=== PATIENT | female | born 1945 | race Caucasian/White ===

== ENCOUNTER 2016-11-26 12:12 | Inpatient (IN) | payer MEDICARE, OTHER ==
[2016-11-26 12:12] VITALS: BMI 37.0
[2016-11-26] MEDS ORDERED: MethylPREDNISolone 40 mg Vial IVP STA (12:35)
[2016-11-26] MEDS ORDERED: Albuterol-Ipratrop 3 mg / 0.5 (3 ml) UD IH STA (12:35)
--- NOTE | 2016-11-26 12:37 | C.PDOC ---
History Of Present Illness 11/26/2016 Benjamín Milton is a 71 y/o female whose pmh includes HTN and asthma, presents to the ED complaining of shortness of breath and flu-like symptoms. Patient reports having a cough, body aches, and this morning she had a fever of 102 degrees. Patient denies chest pain, headache, back pain, nausea, vomiting, diarrhea, abdominal pain, lower extremity pain/swelling, recent travel, dizziness or other complaints. PMD: Dr. Sousa Time Seen by Provider: 11/26/16 12:27 Chief Complaint (Nursing): Cough, Cold, Congestion History Per: Patient, Family History/Exam Limitations: no limitations Onset/Duration Of Symptoms: Gradual Current Symptoms Are (Timing): Worse Location Of Pain: Other (body aches) Associated Symptoms: Fever, Cough, Other (shotness of breath and body aches) Additional History Per: Family Past Medical History Reviewed: Historical Data, Nursing Documentation, Vital Signs Vital Signs: Last Vital Signs Temp 98.3 F 11/26/16 12:16 Pulse 65 11/26/16 15:15 Resp 19 11/26/16 15:15 BP 117/49 L 11/26/16 15:15 Pulse Ox 93 L 11/26/16 15:44 - Medical History PMH: HTN Denies: Depression Family History: States: No Known Family Hx - Social History Hx Tobacco Use: No Hx Alcohol Use: No Hx Substance Use: No Review Of Systems Constitutional: Positive for: Fever Cardiovascular: Negative for: Chest Pain Respiratory: Positive for: Cough, Shortness of Breath Gastrointestinal: Negative for: Vomiting, Abdominal Pain, Diarrhea Neurological: Negative for: Headache, Dizziness Physical Exam - Physical Exam Additional Physical Exam Comments: Constitutional: No acute distress. Head: Normocephalic. Atraumatic. Eyes: PERRL. ENT: Moist mucous membranes. Neck: Supple. Cardiovascular: Regular rate. Radial pulses 2+ bilaterally. Chest: No tenderness. Respiratory: Decreased breath sounds. Wheezing. GI: Soft. Nontender. Nondistended. Back: No CVA tenderness. Musculoskeletal: No tenderness or swelling of extremities. Skin: No rash. Neurologic: Alert, no focal deficit. ED Course And Treatment - Laboratory Results Result Diagrams: 11/26/16 12:48 11/26/16 12:48 O2 Sat by Pulse Oximetry: 93 (room air) Pulse Ox Interpretation: Abnormal Medical Decision Making Medical Decision Makin11/26/2016 Impression: 71 y/o female with shortness of breath, cough, and fever. Plan: -- CXR -- Labs -- Urinalysis -- Duoneb, Toradol, and Solumedrol -- Reassess and disposition Progress Notes: 11/26/2016 14:45 Chest X-ray: Creator : Elliot Calderon MD COMPARISON: Chest radiographs 05/09/2012 FINDINGS: LUNGS: A patchy density appears in the interval at the right base and is posterior in the lateral view and lateral and frontal views suggestive of right lower lobe infiltrate. Study is somewhat underpenetrated. PLEURA: No significant pleural effusion identified. No pneumothorax apparent. CARDIOVASCULAR: Cardiac silhouette is stable however there is questionable pulmonary venous congestion. The vascular markings may be eccentrically divided by limited penetration however and further clinical correlation is advised. OSSEOUS STRUCTURES: No significant abnormalities. VISUALIZED UPPER ABDOMEN: Normal. OTHER FINDINGS: None. IMPRESSION: 1. Right lower lobe infiltrate appears mild. No definite left-sided infiltrate. 2. CHF in question although some of the vascular markings may be accentuated by limited penetration in these radiographs. EKG NSR, 70 bpm, no ST elevations or depressions. Dr. Baldwin accepts patient to hospitalist service covering for Dr. Sousa. Ceftriaxone and azithromycin administered for CAP and cultures sent. Disposition Discussed With : Erasmo Baldwin Doctor Will See Patient In The: ED - Disposition Disposition: HOSPITALIZED Disposition Time: 13:09 Condition: GUARDED - POA Core Measure Indicators: Pneumonia - Clinical Impression Clinical Impression: Pneumonia - Scribe Statement The provider has reviewed the documentation as recorded by the Scribe 11/26/2016 Scribe Attestation: Selena Hartley MD Scribe Attestation: All medical record entries made by the Scribe were at my direction and personally dictated by me. I have reviewed the chart and agree that the record accurately reflects my personal performance of the history, physical exam, medical decision making, and the department course for this patient. I have also personally directed, reviewed, and agree with the discharge instructions and disposition.
[2016-11-26 12:53] LABS: BASO # 0.1 K/uL (0.0-0.2); BASO % 0.6 % (0.0-2.0); EOS # 0.1 K/uL (0.0-0.7); EOS % 0.3 % (0.0-4.0); HEMATOCRIT 37.8 % (34.0-47.0); LYMPH # 0.3 K/uL (1.0-4.3); LYMPH % 1.5 % (20.0-40.0); MEAN CELL VOLUME 81.9 fL (81.0-99.0); MEAN CORPUSCULAR HEMOGLOBIN 27.6 pg (27.0-31.0); MEAN CORPUSCULAR HGB CONC 33.7 g/dL (33.0-37.0); MEAN PLATELET VOLUME 7.8 fL (7.2-11.7); MONO # 0.9 K/uL (0.0-0.8); MONO % 4.3 % (0.0-10.0); PLATELET COUNT 332 K/uL (130-400); RED CELL DISTRIBUTION WIDTH 16.8 % (11.5-14.5); WHITE BLOOD COUNT 20.9 K/uL (4.8-10.8)
[2016-11-26] MEDS ORDERED: Azithromycin 500 MG in Sodium Chloride 0.9% 250 ML IVPB STA (12:58)
[2016-11-26 12:59] LABS: CHLORIDE 95 mmol/L (98-107)
[2016-11-26] MEDS ORDERED: Albuterol-Ipratrop 3 mg / 0.5 (3 ml) UD ONE ×3 (12:59→14:04)
[2016-11-26 13:00] LABS: POTASSIUM 3.6 mmol/L (3.6-5.2); SODIUM 135 mmol/L (132-148)
[2016-11-26 13:02] LABS: ALB/GLOB RATIO 0.9 (1.0-2.1); ALKALINE PHOSPHATASE 109 U/L (38-126); ALT/SGPT 43 U/L (9-52); AST/SGOT 33 U/L (14-36); BILIRUBIN,TOTAL 1.1 mg/dL (0.2-1.3); BLOOD UREA NITROGEN 18 mg/dL (7-17); CARBON DIOXIDE 25 mmol/L (22-30); GFR AFRICAN-AMERICAN > 60; GLUCOSE,RANDOM 141 mg/dL (65-105); TOTAL PROTEIN 7.2 g/dL (6.3-8.3)
[2016-11-26 13:03] LABS: CALCIUM 8.6 mg/dl (8.6-10.4)
[2016-11-26] MEDS ORDERED: Azithromycin 500mg/250ML NS 500 MG/250 ML BAG IVPB ONE (13:06)
[2016-11-26 13:33] LABS: NEUTROPHIL 93 % (50-75); TOTAL CELLS COUNTED 100
[2016-11-26 13:34] LABS: LARGE PLATELETS PRESENT
[2016-11-26 13:36] LABS: RBC URINE 6 /hpf (0-3); URINE BACTERIA RARE (<OCC); URINE BILIRUBIN NEGATIVE (NEGATIVE); URINE BLOOD 1+ (NEGATIVE); URINE COLOR Yellow (YELLOW); URINE GLUCOSE (UA) NORMAL (Normal); URINE KETONE NEGATIVE (NEGATIVE); URINE LEUKOCYTE ESTERASE 3+ Leu/uL (Negative); URINE PROTEIN 1+ mg/dL (NEGATIVE); URINE UROBILINOGEN NORMAL mg/dL (0.2-1.0); WBC URINE 75 /hpf (0-5)
[2016-11-26] MEDS ORDERED: cefTRIAXone IV 1 gm in Dextros 50 ML IVPB ONE (14:04)
--- NOTE | 2016-11-26 14:13 | CP.PCM.HP ---
<Darrian Cloud - Last Filed: 11/26/16 15:18> History of Present Illness - History of Present Illness History of Present Illness: 71F PMHx asthma, HTN and questionable afib presented after fever and wheezing this morning. Pt felt sick and SOB 2 weeks ago and visited PMD Dr. Sousa last week, who gave them Medrol dose pack. Pt started coughing last week and Promethazine not helping. Pt started wheezing 3 days ago and this morning had fever of 102F. Pt also has 2 episode of white mucus vomiting this morning. Pt otherwise denied hx of intubation, chest pain, sick contact, travel, constipation or diarrhea. Pt said she uses her Ventolin once a week. Pt is poor historian and not sure why she is on Coumadin 5mg and Amiodarone 200mg, which she takes every day and recently filled on 08/2016. NKDA PMHx: see above PSHx: denies FMHx: reviewed and noncontributory, though pt not entirely sure Social: denied ETOH or tobacco, worked in the kitchen as supervising chef PMD: Dr. Sousa Present on Admission - Present on Admission Any Indicators Present on Admission: No Review of Systems - Constitutional Constitutional: Fever. absent: Chills, Weight Loss, Weakness - EENT Eyes: absent: Blurred Vision Nose/Mouth/Throat: absent: Post Nasal Drip - Cardiovascular Cardiovascular: Dyspnea. absent: Chest Pain, Edema, Syncope - Respiratory Respiratory: Cough, Dyspnea, Wheezing, Excessive Mucous Production. absent: Pain with Coughing - Gastrointestinal Gastrointestinal: absent: Constipation, Diarrhea, Dysphagia, Nausea, Vomiting - Genitourinary Genitourinary: absent: Dysuria, Freq UTI - Musculoskeletal Musculoskeletal: absent: Numbness, Stiffness, Tingling - Integumentary Integumentary: absent: New Lesions, Rash - Neurological Neurological: absent: Weakness Past Patient History - Infectious Disease Hx of Infectious Diseases: None - Tetanus Immunizations Tetanus Immunization: Unknown - Past Social History Smoking Status: Never Smoked - CARDIAC Hx Hypertension: Yes - PULMONARY Hx Asthma: Yes - PSYCHIATRIC Hx Depression: No Hx Substance Use: No - SURGICAL HISTORY Hx Surgeries: No - ANESTHESIA Hx Anesthesia: No Meds Allergies/Adverse Reactions: Allergies Allergy/AdvReac Type Severity Reaction Status Date / Time No Known Allergies Allergy Verified 11/26/16 12:16 Physical Exam - Constitutional Appears: Non-toxic, No Acute Distress - Head Exam Head Exam: NORMOCEPHALIC - Eye Exam Eye Exam: Normal appearance Pupil Exam: NORMAL ACCOMODATION - ENT Exam ENT Exam: Mucous Membranes Moist - Neck Exam Neck exam: Positive for: Normal Inspection - Respiratory Exam Respiratory Exam: Rales (RLL), Wheezes (diffuse), NORMAL BREATHING PATTERN - Cardiovascular Exam Cardiovascular Exam: REGULAR RHYTHM, +S1, +S2. absent: Gallop, Rubs - GI/Abdominal Exam GI & Abdominal Exam: Normal Bowel Sounds, Soft. absent: Tenderness - Extremities Exam Extremities exam: Positive for: pedal edema (trace) - Neurological Exam Neurological exam: Alert, Oriented x3 - Psychiatric Exam Psychiatric exam: Normal Mood - Skin Skin Exam: Dry, Intact Results - Vital Signs Recent Vital Signs: Last Vital Signs Temp 98.3 F 11/26/16 12:16 Pulse 67 11/26/16 12:16 Resp 16 11/26/16 12:16 BP 131/56 L 11/26/16 12:16 Pulse Ox 93 L 11/26/16 13:06 - Labs Result Diagrams: 11/26/16 12:48 11/26/16 12:48 Labs: Laboratory Results - last 24 hr 11/26/16 13:59 Influenza Typ A,B (EIA) Negative for flu a/b Grp A Beta Strep Ag Negative Assessment & Plan - Assessment and Plan (Free Text) Assessment: Asthma exacerbation Admit to telemetry, will DC tele if no adverse cardiac events. Solumedrol 60mg IVP q8H. Ipatropium IH QID. Advair q12H. Avoid albuterol due to adverse effect beta agonist on possible afib. Peak flow. RLL pneumonia CXR showed RLL infiltrate per report. Flu and rapid strep negative. Zithromax 500mg IV daily and Rocephin 1g IV daily, started 11/26. F/U mycoplasma IgG/IgM, legionaire and strep pneumo urine AG. F/U blood culture. Hx of HTN Continue home med: Norvasc 10mg PO daily. Lopressor 100mg PO q12H. HCTZ 25mg PO daily. Losartan 100mg PO daily. F/U BNP. Hx of taking Coumadin Pt unaware of hx of arrhythmia, said it was for "fast heart rate". Currently rate controlled and sinus @ 68. Continue Amiodarone 200mg PO daily. Hold Coumadin due to INR of 3. F/U EKG AM due to prolonged QT. UTI Urine LE 3+ Continue Rocephin. F/U urine culture. Prophylactic measure Coumadin, Pepcid. Meclizine PRN. <Erasmo Baldwin - Last Filed: 11/26/16 17:54> Results - Vital Signs Recent Vital Signs: Last Vital Signs Temp 98.3 F 11/26/16 12:16 Pulse 65 11/26/16 15:15 Resp 19 11/26/16 15:15 BP 117/49 L 11/26/16 15:15 Pulse Ox 93 L 11/26/16 15:47 - Labs Result Diagrams: 11/26/16 12:48 11/26/16 12:48 Labs: Laboratory Results - last 24 hr 11/26/16 11/26/16 11/26/16 13:59 14:46 15:29 PT 35.7 H* INR 3.0 APTT 44 H NT-Pro-B Natriuret Pep 1140 H Influenza Typ A,B (EIA) Negative for flu a/b Grp A Beta Strep Ag Negative Attending/Attestation - Attestation I have personally seen and examined this patient.: Yes I have fully participated in the care of the patient.: Yes I have reviewed all pertinent clinical information: Yes Notes (Text): 11/26/16 17:52 Patient was seen and examined with the Resident in the ER Bed #1 History, Physical, Assessment and Plan, and Orders were thoroughly discussed with the Resident. Erasmo Baldwin D.O.
--- NOTE | 2016-11-26 14:44 | RAD ---
HISTORY: cough COMPARISON: Chest radiographs 05/09/2012 TECHNIQUE: Chest PA and lateral FINDINGS: LUNGS: A patchy density appears in the interval at the right base and is posterior in the lateral view and lateral and frontal views suggestive of right lower lobe infiltrate. Study is somewhat underpenetrated. PLEURA: No significant pleural effusion identified. No pneumothorax apparent. CARDIOVASCULAR: Cardiac silhouette is stable however there is questionable pulmonary venous congestion. The vascular markings may be eccentrically divided by limited penetration however and further clinical correlation is advised. OSSEOUS STRUCTURES: No significant abnormalities. VISUALIZED UPPER ABDOMEN: Normal. OTHER FINDINGS: None. IMPRESSION: 1. Right lower lobe infiltrate appears mild. No definite left-sided infiltrate. 2. CHF in question although some of the vascular markings may be accentuated by limited penetration in these radiographs.
[2016-11-26] MEDS ORDERED: Ipratropium 17 mcg/puff-200 puff/12.5 gm HFA Inh IH SCH ×2 (18:00)
[2016-11-26] MEDS: Ipratropium 17 mcg/puff-200 puff/12.5 gm HFA Inh IH SCH (19:36)
[2016-11-26] MEDS: Fluticasone-Salmeterol 250-50mcg Diskus IH SCH (19:36)
[2016-11-27 07:00] LABS: INR 3.2
[2016-11-27 07:12] LABS: CALCIUM 8.6 mg/dl (8.6-10.4); MAGNESIUM 1.9 mg/dL (1.6-2.3); PHOSPHOROUS 2.5 mg/dL (2.5-4.5); POTASSIUM 3.4 mmol/L (3.6-5.2)
[2016-11-27 07:21] LABS: BASO % 0.2 % (0.0-2.0); HEMATOCRIT 35.4 % (34.0-47.0); LYMPH # 0.5 K/uL (1.0-4.3); LYMPH % 2.6 % (20.0-40.0); MEAN CELL VOLUME 82.6 fL (81.0-99.0); MEAN CORPUSCULAR HEMOGLOBIN 27.1 pg (27.0-31.0); MEAN CORPUSCULAR HGB CONC 32.8 g/dL (33.0-37.0); MEAN PLATELET VOLUME 8.3 fL (7.2-11.7); MONO # 0.4 K/uL (0.0-0.8); MONO % 2.2 % (0.0-10.0); PLATELET COUNT 349 K/uL (130-400); RED CELL DISTRIBUTION WIDTH 16.9 % (11.5-14.5); WHITE BLOOD COUNT 19.5 K/uL (4.8-10.8)
[2016-11-27 07:28] LABS: T4 7.78 ug/dL (5.5-11.0)
[2016-11-27 07:41] LABS: THYROID STIMULATING HORMONE 0.6 mIU/L (0.46-4.68)
[2016-11-27 08:36] LABS: NEUTROPHIL 95 % (50-75); TOTAL CELLS COUNTED 100
[2016-11-27] MEDS ORDERED: MethylPREDNISolone 40 mg Vial IVP SCH (09:00)
[2016-11-27] MEDS: Fluticasone-Salmeterol 250-50mcg Diskus IH SCH ×2 (09:58→19:50)
[2016-11-27] MEDS: Ipratropium 17 mcg/puff-200 puff/12.5 gm HFA Inh IH SCH (09:59)
[2016-11-27] MEDS ORDERED: Fluticasone Nasal 50 mcg/Spray NS SCH (10:00)
[2016-11-27 11:39] LABS: LEGIONELLA AG URINE NEGATIVE (NEGATIVE)
[2016-11-27] MEDS ORDERED: Potassium Chloride 20 mEq/15 ml LIQ UD PO ONE (12:00)
[2016-11-27] MEDS: Azithromycin 500mg/250ML NS 500 MG/250 ML BAG IVPB SCH (12:45)
[2016-11-27] MEDS: Albuterol-Ipratrop 3 mg / 0.5 (3 ml) UD INH SCH ×2 (13:29→19:49)
--- NOTE | 2016-11-27 14:29 | CP.PCM.CON ---
History of Present Illness - History of Present Illness History of Present Illness: reason for consultation: right lung pneumonia Patient is 71-year-old female with history of asthma, hypertension, atrial fibrillation presented to emergency room with 2 week history of shortness of breath and chills, was prescribed cough medicin and steroids by her PMD. Later patient developed fever and wheezing with productive cough. Patient was admitted with right lower lobe pneumonia and started on IV antibiotics. Patient states she is feeling much better. Review of Systems - Review of Systems All systems: reviewed and no additional remarkable complaints except (shortness of breath, cough, fever and wheezing) Past Patient History - Infectious Disease Hx of Infectious Diseases: None - Tetanus Immunizations Tetanus Immunization: Unknown - Past Medical History & Family History Past Medical History?: Yes - Past Social History Smoking Status: Never Smoked - CARDIAC Hx Hypertension: Yes - PULMONARY Hx Asthma: Yes - HEENT Hx Cataracts: Yes - MUSCULOSKELETAL/RHEUMATOLOGICAL Hx Falls: No - PSYCHIATRIC Hx Substance Use: No - SURGICAL HISTORY Hx Surgeries: No Hx Cataract Extraction: Yes (BILATERAL) - ANESTHESIA Hx Anesthesia: Yes Hx Anesthesia Reactions: No Meds Allergies/Adverse Reactions: Allergies Allergy/AdvReac Type Severity Reaction Status Date / Time No Known Allergies Allergy Verified 11/26/16 12:16 - Medications Medications: Current Medications Albuterol/Ipratropium (Duoneb 3 Mg/0.5 Mg (3 Ml) Ud) 3 ml INH RQ6 [facility] Last Admin: 11/27/16 13:29 Dose: Not Given Amiodarone HCl (Cordarone) 200 mg PO DAILY [facility] Last Admin: 11/27/16 10:36 Dose: 200 mg Amlodipine Besylate (Norvasc) 10 mg PO 1800 [facility] Last Admin: 11/26/16 18:35 Dose: 10 mg Famotidine (Pepcid) 20 mg PO BID [facility] Last Admin: 11/27/16 10:36 Dose: 20 mg Fluticasone Propionate (Flonase) 1 spr NS DAILY [facility] Last Admin: 11/27/16 11:01 Dose: 1 spray Hydrochlorothiazide (Hydrodiuril) 25 mg PO 0900 [facility] Last Admin: 11/27/16 10:36 Dose: 25 mg Ceftriaxone Sodium 1 gm/ (Sodium Chloride) 100 mls @ 100 mls/hr IVPB DAILY [facility] Last Admin: 11/27/16 10:36 Dose: 100 mls/hr Azithromycin (Zithromax 500mg In Ns Addvantage) 500 mg in 250 mls @ 167 mls/hr IVPB Q24H [facility] Losartan Potassium (Cozaar) 100 mg PO 1400 [facility] Meclizine HCl (Antivert) 25 mg PO Q6 PRN PRN Reason: Dizziness Methylprednisolone (Solu-Medrol) 40 mg IVP Q8H [facility] Metoprolol Tartrate (Lopressor) 100 mg PO Q12H [facility] Last Admin: 11/27/16 10:36 Dose: 100 mg Pneumococcal Polyvalent Vaccine (Pneumovax 23 Vaccine) 0.5 ml IM .ONCE ONE Stop: 11/28/16 10:01 Fluticasone/Salmeterol (Advair Diskus 250/50) 1 puff IH RQ12 [facility] Last Admin: 11/27/16 09:58 Dose: 1 puff Tiotropium Kennan (Spiriva) 18 mcg INH RQ24 [facility] Physical Exam - Constitutional Appears: No Acute Distress - Head Exam Head Exam: ATRAUMATIC, NORMOCEPHALIC - Eye Exam Eye Exam: EOMI - ENT Exam ENT Exam: Mucous Membranes Moist - Neck Exam Neck exam: Positive for: Normal Inspection - Respiratory Exam Respiratory Exam: Rales - Cardiovascular Exam Cardiovascular Exam: REGULAR RHYTHM - GI/Abdominal Exam GI & Abdominal Exam: Normal Bowel Sounds, Soft - Extremities Exam Extremities exam: Positive for: normal inspection - Neurological Exam Neurological exam: Alert, Oriented x3 Results - Vital Signs Recent Vital Signs: Last Vital Signs Temp 97.5 F L 11/27/16 09:39 Pulse 62 11/27/16 09:39 Resp 20 11/27/16 09:39 BP 117/71 11/27/16 09:39 Pulse Ox 96 11/27/16 09:39 - Labs Result Diagrams: 11/28/16 06:25 11/28/16 06:25 Labs: Laboratory Results - last 24 hr 11/26/16 11/26/16 11/27/16 14:46 15:29 06:45 WBC 19.5 H RBC 4.28 Hgb 11.6 Hct 35.4 MCV 82.6 MCH 27.1 MCHC 32.8 L RDW 16.9 H Plt Count 349 MPV 8.3 Neut % (Auto) 95.0 H Lymph % (Auto) 2.6 L [place] % (Auto) 2.2 Eos % (Auto) 0.0 Baso % (Auto) 0.2 Neut # 18.5 H Lymph # 0.5 L [place] # 0.4 Eos # 0.0 Baso # 0.0 Neutrophils % (Manual) 95 H Band Neutrophils % 1 Lymphocytes % (Manual) 2 L Monocytes % (Manual) 2 Platelet Estimate Normal Hypochromasia (manual) Slight Poikilocytosis (manual Slight Anisocytosis (manual) Slight PT 35.7 H* INR 3.0 APTT 44 H Sodium Potassium Chloride Carbon Dioxide Anion Gap BUN Creatinine Est GFR ( Amer) Est GFR (Non-Af Amer) Random Glucose Hemoglobin A1c Calcium Phosphorus Magnesium NT-Pro-B Natriuret Pep 1140 H Triglycerides Cholesterol LDL Cholesterol Direct HDL Cholesterol Thyroxine (T4) TSH 3rd Generation H.influenzae Type B Ag Ur L.pneumophila Ag N.meningitidis ACY/W135 N.meningi B/E.coli K1 Ag Group B Strep Antigen S. pneumoniae Antigen 11/27/16 11/27/16 11/27/16 06:45 06:45 06:45 WBC RBC Hgb Hct MCV MCH MCHC RDW Plt Count MPV Neut % (Auto) Lymph % (Auto) [place] % (Auto) Eos % (Auto) Baso % (Auto) Neut # Lymph # [place] # Eos # Baso # Neutrophils % (Manual) Band Neutrophils % Lymphocytes % (Manual) Monocytes % (Manual) Platelet Estimate Hypochromasia (manual) Poikilocytosis (manual Anisocytosis (manual) PT 37.4 H* INR 3.2 APTT 38 H D Sodium 134 Potassium 3.4 L Chloride 97 L Carbon Dioxide 25 Anion Gap 15 BUN 29 H Creatinine 1.4 H Est GFR ( Amer) 45 Est GFR (Non-Af Amer) 37 Random Glucose 202 H Hemoglobin A1c 6.1 Calcium 8.6 Phosphorus 2.5 Magnesium 1.9 NT-Pro-B Natriuret Pep Triglycerides 73 Cholesterol 127 LDL Cholesterol Direct 73 HDL Cholesterol 41 Thyroxine (T4) 7.78 TSH 3rd Generation 0.60 H.influenzae Type B Ag Ur L.pneumophila Ag N.meningitidis ACY/W135 N.meningi B/E.coli K1 Ag Group B Strep Antigen S. pneumoniae Antigen 11/27/16 09:51 WBC RBC Hgb Hct MCV MCH MCHC RDW Plt Count MPV Neut % (Auto) Lymph % (Auto) [place] % (Auto) Eos % (Auto) Baso % (Auto) Neut # Lymph # [place] # Eos # Baso # Neutrophils % (Manual) Band Neutrophils % Lymphocytes % (Manual) Monocytes % (Manual) Platelet Estimate Hypochromasia (manual) Poikilocytosis (manual Anisocytosis (manual) PT INR APTT Sodium Potassium Chloride Carbon Dioxide Anion Gap BUN Creatinine Est GFR ( Amer) Est GFR (Non-Af Amer) Random Glucose Hemoglobin A1c Calcium Phosphorus Magnesium NT-Pro-B Natriuret Pep Triglycerides Cholesterol LDL Cholesterol Direct HDL Cholesterol Thyroxine (T4) TSH 3rd Generation H.influenzae Type B Ag TEST NOT PERFORMED Ur L.pneumophila Ag Negative N.meningitidis ACY/W135 TEST NOT PERFORMED N.meningi B/E.coli K1 Ag TEST NOT PERFORMED Group B Strep Antigen TEST NOT PERFORMED S. pneumoniae Antigen Negative Assessment & Plan (1) Pneumonia Status: Acute Comment: chest x-ray consistent withght lower lung infiltrate. Continue IV antibiotics. Followup culture and sensitivity. Taper steroids. Continue nebulizer treatment
[2016-11-27] MEDS: MethylPREDNISolone 40 mg Vial IVP SCH ×2 (15:21→21:00)
--- NOTE | 2016-11-27 20:52 | CP.PCM.PN ---
<Nel Whitaker - Last Filed: 11/27/16 20:54> Subjective - Date & Time of Evaluation Date of Evaluation: 11/27/16 Time of Evaluation: 07:30 - Subjective Subjective: Pt seen and examined at bedside. Patient resting comfortably in bed. Patient has no new complaints at this time. Patient says she still has an occasional cough that is nonproductive. Pt denies any history of smoking. Pt denies F/C/CP/ SOB/AP/N/V/D/C. Objective - Vital Signs/Intake and Output Vital Signs (last 24 hours): Temp Pulse Resp BP Pulse Ox 97.6 F 62 20 121/70 93 L 11/27/16 15:00 11/27/16 15:00 11/27/16 15:00 11/27/16 15:00 11/27/16 15:00 Intake and Output: 11/27/16 11/28/16 18:59 06:59 Intake Total 350 Balance 350 - Medications Medications: Current Medications Albuterol/Ipratropium (Duoneb 3 Mg/0.5 Mg (3 Ml) Ud) 3 ml INH RQ6 [facility] Last Admin: 11/27/16 19:49 Dose: 3 ml Amiodarone HCl (Cordarone) 200 mg PO DAILY [facility] Last Admin: 11/27/16 10:36 Dose: 200 mg Amlodipine Besylate (Norvasc) 10 mg PO 1800 [facility] Last Admin: 11/27/16 18:04 Dose: 10 mg Famotidine (Pepcid) 20 mg PO BID [facility] Last Admin: 11/27/16 18:04 Dose: 20 mg Fluticasone Propionate (Flonase) 1 spr NS DAILY [facility] Last Admin: 11/27/16 11:01 Dose: 1 spray Hydrochlorothiazide (Hydrodiuril) 25 mg PO 0900 [facility] Last Admin: 11/27/16 10:36 Dose: 25 mg Ceftriaxone Sodium 1 gm/ (Sodium Chloride) 100 mls @ 100 mls/hr IVPB DAILY [facility] Last Admin: 11/27/16 10:36 Dose: 100 mls/hr Azithromycin (Zithromax 500mg In Ns Addvantage) 500 mg in 250 mls @ 167 mls/hr IVPB Q24H [facility] Last Admin: 11/27/16 12:45 Dose: 167 mls/hr Losartan Potassium (Cozaar) 100 mg PO 1400 [facility] Last Admin: 11/27/16 15:02 Dose: 100 mg Meclizine HCl (Antivert) 25 mg PO Q6 PRN PRN Reason: Dizziness Methylprednisolone (Solu-Medrol) 40 mg IVP Q8H [facility] Last Admin: 11/27/16 15:21 Dose: 40 mg Metoprolol Tartrate (Lopressor) 100 mg PO Q12H [facility] Last Admin: 11/27/16 10:36 Dose: 100 mg Pneumococcal Polyvalent Vaccine (Pneumovax 23 Vaccine) 0.5 ml IM .ONCE ONE Stop: 11/28/16 10:01 Fluticasone/Salmeterol (Advair Diskus 250/50) 1 puff IH RQ12 [facility] Last Admin: 11/27/16 19:50 Dose: 1 puff Tiotropium [facility] (Spiriva) 18 mcg INH RQ24 [facility] - Labs Labs: 11/27/16 06:45 11/27/16 06:45 PT 37.4 SECONDS (9.7-12.2) H* 11/27/16 06:45 INR 3.2 11/27/16 06:45 APTT 38 SECONDS (21-34) H D 11/27/16 06:45 - Constitutional Appears: Non-toxic, No Acute Distress - Head Exam Head Exam: NORMAL INSPECTION - Eye Exam Eye Exam: EOMI - ENT Exam ENT Exam: Mucous Membranes Moist - Respiratory Exam Respiratory Exam: Decreased Breath Sounds (bibasilar), Rhonchi (b/l), NORMAL BREATHING PATTERN. absent: Accessory Muscle Use, Respiratory Distress - Cardiovascular Exam Cardiovascular Exam: REGULAR RHYTHM. absent: Bradycardia, Tachycardia - GI/Abdominal Exam GI & Abdominal Exam: Soft. absent: Tenderness - Extremities Exam Extremities Exam: Normal Inspection - Neurological Exam Neurological Exam: Alert, Awake - Psychiatric Exam Psychiatric exam: Normal Affect, Normal Mood - Skin Skin Exam: Dry, Intact, Warm Assessment and Plan - Assessment and Plan (Free Text) Assessment: Asthma exacerbation * Currently on telemetry, will DC tele if no adverse cardiac events. * Solumedrol 60mg decreased to 40mg IVP q8H * Ipatropium IH QID. * Advair q12H. * Spiriva inhaler given 11/27 * Albuterol q6 prn SOB - consider discontinuing due to possible adverse effect on afib * Peak flow pre and post tx * Pulmonary consult (Dr. Bose) RLL pneumonia * Leukocytosis of 19.5 (11/27/16) 2/2 pneumonia vs steroid use * CXR showed RLL infiltrate per report. * Flu and rapid strep negative. * Zithromax 500mg IV daily and Rocephin 1g IV daily, started 11/26. * F/U mycoplasma IgG/IgM * Legionaire urine AG negative and and strep pneumo AG negative * Blood culture negative x 24h * PT evaluation Hypokalemia * Potassium chloride 20 meq PO once * f/u magnesium level * Cont to monitor Hx of HTN * Continue home med: * Norvasc 10mg PO daily. * Lopressor 100mg PO q12H. * HCTZ 25mg PO daily. * Losartan 100mg PO daily. * BNP (11/26) - 1140 * F/U Echo Hx of taking Coumadin * Pt unaware of hx of arrhythmia, said it was for "fast heart rate" * Currently rate controlled and sinus @ 62 * Continue Amiodarone 200mg PO daily * Hold Coumadin due to INR of 3.2 * EKG (11/26) - normal sinus rhythm, prolonged QT UTI * Urine LE 3+ * Continue Rocephin. * Urine culture negative Prophylactic measure * Coumadin, Pepcid. * Meclizine PRN. Nel Whitaker DO PGY1 <Tahira Dahl V - Last Filed: 11/27/16 22:46> Objective - Vital Signs/Intake and Output Vital Signs (last 24 hours): Temp Pulse Resp BP Pulse Ox 97.6 F 62 20 121/70 93 L 11/27/16 15:00 11/27/16 15:00 11/27/16 15:00 11/27/16 15:00 11/27/16 15:00 Intake and Output: 11/27/16 11/28/16 18:59 06:59 Intake Total 350 240 Balance 350 240 - Medications Medications: Current Medications Albuterol/Ipratropium (Duoneb 3 Mg/0.5 Mg (3 Ml) Ud) 3 ml INH RQ6 [facility] Last Admin: 11/27/16 19:49 Dose: 3 ml Amiodarone HCl (Cordarone) 200 mg PO DAILY [facility] Last Admin: 11/27/16 10:36 Dose: 200 mg Amlodipine Besylate (Norvasc) 10 mg PO 1800 [facility] Last Admin: 11/27/16 18:04 Dose: 10 mg Famotidine (Pepcid) 20 mg PO BID [facility] Last Admin: 11/27/16 18:04 Dose: 20 mg Fluticasone Propionate (Flonase) 1 spr NS DAILY [facility] Last Admin: 11/27/16 11:01 Dose: 1 spray Hydrochlorothiazide (Hydrodiuril) 25 mg PO 0900 [facility] Last Admin: 11/27/16 10:36 Dose: 25 mg Ceftriaxone Sodium 1 gm/ (Sodium Chloride) 100 mls @ 100 mls/hr IVPB DAILY [facility] Last Admin: 11/27/16 10:36 Dose: 100 mls/hr Azithromycin (Zithromax 500mg In Ns Addvantage) 500 mg in 250 mls @ 167 mls/hr IVPB Q24H [facility] Last Admin: 11/27/16 12:45 Dose: 167 mls/hr Losartan Potassium (Cozaar) 100 mg PO 1400 [facility] Last Admin: 11/27/16 15:02 Dose: 100 mg Meclizine HCl (Antivert) 25 mg PO Q6 PRN PRN Reason: Dizziness Methylprednisolone (Solu-Medrol) 40 mg IVP Q8H [facility] Last Admin: 11/27/16 21:00 Dose: 40 mg Metoprolol Tartrate (Lopressor) 100 mg PO Q12H [facility] Last Admin: 11/27/16 21:04 Dose: Not Given Pneumococcal Polyvalent Vaccine (Pneumovax 23 Vaccine) 0.5 ml IM .ONCE ONE Stop: 11/28/16 10:01 Fluticasone/Salmeterol (Advair Diskus 250/50) 1 puff IH RQ12 [facility] Last Admin: 11/27/16 19:50 Dose: 1 puff Tiotropium [facility] (Spiriva) 18 mcg INH RQ24 [facility] - Labs Labs: 11/27/16 06:45 11/27/16 06:45 PT 37.4 SECONDS (9.7-12.2) H* 11/27/16 06:45 INR 3.2 11/27/16 06:45 APTT 38 SECONDS (21-34) H D 11/27/16 06:45 Attending/Attestation - Attestation I have personally seen and examined this patient.: Yes I have fully participated in the care of the patient.: Yes I have reviewed all pertinent clinical information, including history, physical exam and plan: Yes Notes (Text): Patient seen, examined and case discussed with day-time resident. Hospitalist covering for Dr. Sousa's service Patient reports cough, productive which did not improve with cough suppressant and PO steroid pack. Pulmonary consult: pneumonia and asthma exacerbation Monitor pre and post peak flows. Patient denies she is smoker/past smoker. IV Steroids tapered; Started on Albuterol PRN shortness of breathe. Patient started yesterday for antibiotics to cover for community acquired pneumonia. Unclear if patient has hx of atrial fibrillation; will need to follow-up with PMD; INR is therapuetic. Patient ordered for echocardiogram given elevated proBNP. Patient to resume care under primary care doctor, Dr Sousa tomorrow; 11/28/16 Assessment/Plan 1) RLL pneumonia * CXR showed RLL infiltrate per report. Patient came in with elevated white count in 20s; unclear to affect of steroid given she was PO prior to coming in and started on IV steroids during admission * Flu and rapid strep negative. * Zithromax 500mg IV daily and Rocephin 1g IV daily, started 11/26. * F/U mycoplasma IgG/IgM, legionaire and strep pneumo urine AG. * F/U blood culture * Pulmonary (Dr. Boes) consulted-->help appreciated 2) Asthma exacerbation * Admit to telemetry, will DC tele if no adverse cardiac events. * Taper Solumedrol 40mg IVP q8H. * Ipatropium IH QID. * Advair q12H. * Monitor Pre and post Peak flow. 3) Hx of HTN Continue home med: * Norvasc 10mg PO daily. * Lopressor 100mg PO q12H. * HCTZ 25mg PO daily. * Losartan 100mg PO daily. * elevated probnp-->ordered for echocardiogram 4) Hx of taking Coumadin * Pt unaware of hx of arrhythmia, said it was for "fast heart rate". * Currently rate controlled and sinus @ 68. * Continue Amiodarone 200mg PO daily. * Hold Coumadin due to INR of 3.2-->f/u PMD regarding why patient is on Coumadin and f/u INR in AM * F/U EKG AM due to prolonged QT. 5) Asymptomatic bacturia * Urine LE 3+; urine culture: no growth * Patient is not symptomatic of UTI. * Patient is on empiric IV abx to cover 6) Prophylactic measure * held Coumadin-->f/u PMD why patient is on Coumadin; INR therapuetic, * Pepcid. * Meclizine PRN. * PT eval
[2016-11-28] MEDS: Albuterol-Ipratrop 3 mg / 0.5 (3 ml) UD INH SCH (01:21)
[2016-11-28] MEDS: MethylPREDNISolone 40 mg Vial IVP SCH ×3 (03:32→21:00)
[2016-11-28 06:37] LABS: BASO % 0.1 % (0.0-2.0); LYMPH # 0.5 K/uL (1.0-4.3); LYMPH % 2.1 % (20.0-40.0); MEAN CELL VOLUME 82.7 fL (81.0-99.0); MEAN CORPUSCULAR HEMOGLOBIN 27.2 pg (27.0-31.0); MEAN CORPUSCULAR HGB CONC 32.8 g/dL (33.0-37.0); MEAN PLATELET VOLUME 8.1 fL (7.2-11.7); MONO # 0.3 K/uL (0.0-0.8); MONO % 1.5 % (0.0-10.0); PLATELET COUNT 400 K/uL (130-400); RED CELL DISTRIBUTION WIDTH 17.4 % (11.5-14.5); WHITE BLOOD COUNT 22.3 K/uL (4.8-10.8)
[2016-11-28 06:43] LABS: INR 3.7
[2016-11-28 06:49] LABS: BILIRUBIN,TOTAL 0.4 mg/dL (0.2-1.3); CALCIUM 8.5 mg/dl (8.6-10.4); MAGNESIUM 2.1 mg/dL (1.6-2.3); POTASSIUM 3.5 mmol/L (3.6-5.2); TOTAL PROTEIN 6.5 g/dL (6.3-8.3)
--- NOTE | 2016-11-28 07:22 | CP.PCM.PN ---
Subjective - Date & Time of Evaluation Date of Evaluation: 11/28/16 Time of Evaluation: 07:22 Objective - Vital Signs/Intake and Output Vital Signs (last 24 hours): Temp Pulse Resp BP Pulse Ox 97.6 F 66 20 102/55 L 96 11/28/16 04:35 11/28/16 04:35 11/28/16 04:35 11/28/16 04:35 11/27/16 23:05 Intake and Output: 11/28/16 11/28/16 06:59 18:59 Intake Total 240 Balance 240 - Medications Medications: Current Medications Albuterol/Ipratropium (Duoneb 3 Mg/0.5 Mg (3 Ml) Ud) 3 ml INH RQ6 [facility] Last Admin: 11/28/16 01:21 Dose: Not Given Amiodarone HCl (Cordarone) 200 mg PO DAILY [facility] Last Admin: 11/27/16 10:36 Dose: 200 mg Amlodipine Besylate (Norvasc) 10 mg PO 1800 [facility] Last Admin: 11/27/16 18:04 Dose: 10 mg Famotidine (Pepcid) 20 mg PO BID [facility] Last Admin: 11/27/16 18:04 Dose: 20 mg Hydrochlorothiazide (Hydrodiuril) 25 mg PO 0900 [facility] Last Admin: 11/27/16 10:36 Dose: 25 mg Ceftriaxone Sodium 1 gm/ (Sodium Chloride) 100 mls @ 100 mls/hr IVPB DAILY [facility] Last Admin: 11/27/16 10:36 Dose: 100 mls/hr Azithromycin (Zithromax 500mg In Ns Addvantage) 500 mg in 250 mls @ 167 mls/hr IVPB Q24H [facility] Last Admin: 11/27/16 12:45 Dose: 167 mls/hr Losartan Potassium (Cozaar) 100 mg PO 1400 [facility] Last Admin: 11/27/16 15:02 Dose: 100 mg Meclizine HCl (Antivert) 25 mg PO Q6 PRN PRN Reason: Dizziness Methylprednisolone (Solu-Medrol) 40 mg IVP Q8H [facility] Last Admin: 11/28/16 03:32 Dose: 40 mg Metoprolol Tartrate (Lopressor) 100 mg PO Q12H [facility] Last Admin: 11/27/16 21:04 Dose: Not Given Pneumococcal Polyvalent Vaccine (Pneumovax 23 Vaccine) 0.5 ml IM .ONCE ONE Stop: 11/28/16 10:01 Saccharomyces Boulardii (Florastor) 250 mg PO BID [facility]IBI Fluticasone/Salmeterol (Advair Diskus 250/50) 1 puff IH RQ12 [facility] Last Admin: 11/27/16 19:50 Dose: 1 puff - Labs Labs: 11/28/16 06:25 11/28/16 06:25 PT 43.3 SECONDS (9.7-12.2) H* D 11/28/16 06:25 INR 3.7 11/28/16 06:25 APTT 38 SECONDS (21-34) H D 11/27/16 06:45
[2016-11-28] MEDS ORDERED: Tiotropium 18 mcg Cap For Inhalation INH SCH (08:00)
[2016-11-28 08:43] LABS: NEUTROPHIL 95 % (50-75); TOTAL CELLS COUNTED 100
[2016-11-28] MEDS: Fluticasone-Salmeterol 250-50mcg Diskus IH SCH ×2 (09:15→19:33)
--- NOTE | 2016-11-28 09:31 | CP.PCM.PN ---
Subjective - Date & Time of Evaluation Date of Evaluation: 11/28/16 Time of Evaluation: 07:25 - Subjective Subjective: PGY2 Resident - Medicine Progress Note Patient seen and examined at bedside, resting comfortably. No overnight events per nursing. Patient with continued mild cough, non productive. Tolerating diet and having regular bowel movement. Denies fever, chills, headache, changes in vision, chest pain, palpitations, dyspnea, abdominal pain, nausea/vomiting, diarrhea/constipation, dysuria, urinary frequency, change in urinary stream, or any additional acute complaints. Objective - Vital Signs/Intake and Output Vital Signs (last 24 hours): Temp Pulse Resp BP Pulse Ox 97.6 F 67 20 129/73 100 11/28/16 08:46 11/28/16 08:46 11/28/16 08:46 11/28/16 08:46 11/28/16 08:46 Intake and Output: 11/28/16 11/28/16 06:59 18:59 Intake Total 240 Balance 240 - Medications Medications: Current Medications Amiodarone HCl (Cordarone) 200 mg PO DAILY [facility] Last Admin: 11/27/16 10:36 Dose: 200 mg Amlodipine Besylate (Norvasc) 10 mg PO 1800 [facility] Last Admin: 11/27/16 18:04 Dose: 10 mg Famotidine (Pepcid) 20 mg PO BID [facility] Last Admin: 11/27/16 18:04 Dose: 20 mg Hydrochlorothiazide (Hydrodiuril) 25 mg PO 0900 [facility] Last Admin: 11/28/16 08:26 Dose: 25 mg Ceftriaxone Sodium 1 gm/ (Sodium Chloride) 100 mls @ 100 mls/hr IVPB DAILY [facility] Last Admin: 11/27/16 10:36 Dose: 100 mls/hr Azithromycin (Zithromax 500mg In Ns Addvantage) 500 mg in 250 mls @ 167 mls/hr IVPB Q24H [facility] Last Admin: 11/27/16 12:45 Dose: 167 mls/hr Losartan Potassium (Cozaar) 100 mg PO 1400 [facility] Last Admin: 11/27/16 15:02 Dose: 100 mg Meclizine HCl (Antivert) 25 mg PO Q6 PRN PRN Reason: Dizziness Methylprednisolone (Solu-Medrol) 40 mg IVP Q8H [facility] Last Admin: 11/28/16 03:32 Dose: 40 mg Metoprolol Tartrate (Lopressor) 100 mg PO Q12H [facility] Last Admin: 11/28/16 08:27 Dose: 100 mg Pneumococcal Polyvalent Vaccine (Pneumovax 23 Vaccine) 0.5 ml IM .ONCE ONE Stop: 11/28/16 10:01 Saccharomyces Boulardii (Florastor) 250 mg PO BID [facility] Fluticasone/Salmeterol (Advair Diskus 250/50) 1 puff IH RQ12 [facility] Last Admin: 11/28/16 09:15 Dose: 1 puff - Labs Labs: 11/28/16 06:25 11/28/16 06:25 PT 43.3 SECONDS (9.7-12.2) H* D 11/28/16 06:25 INR 3.7 11/28/16 06:25 APTT 38 SECONDS (21-34) H D 11/27/16 06:45 - Additional Findings Additional findings: - Constitutional Appears: Non-toxic, No Acute Distress - Head Exam Head Exam: NORMAL INSPECTION - Eye Exam Eye Exam: EOMI - ENT Exam ENT Exam: Mucous Membranes Moist - Respiratory Exam Respiratory Exam: Decreased Breath Sounds, Rhonchi (b/l), Wheezes (mild, diffuse ), NORMAL BREATHING PATTERN. absent: Accessory Muscle Use, Respiratory Distress - Cardiovascular Exam Cardiovascular Exam: REGULAR RHYTHM. absent: Bradycardia, Tachycardia - GI/Abdominal Exam GI & Abdominal Exam: Soft. absent: Tenderness - Extremities Exam Extremities Exam: Normal Inspection - Neurological Exam Neurological Exam: Alert, Awake - Psychiatric Exam Psychiatric exam: Normal Affect, Normal Mood - Skin Skin Exam: Dry, Intact, Warm Assessment and Plan - Assessment and Plan (Free Text) Assessment: Asthma exacerbation * 11/28: Continue telemetry, no adverse cardiac events. * Solumedrol 60mg decreased to 40mg IVP q8H * Ipatropium IH QID. * Advair q12H. * Spiriva inhaler given 11/27 * Albuterol q6 prn SOB - discontinued due to possible adverse effect on afib * Peak flow pre and post tx * Pulmonary consult (Dr. Bose) RLL pneumonia * 11/28: WBC 22.3, elevated likely due to steroid use. Continue current management * Leukocytosis of 19.5 (11/27/16) 2/2 pneumonia vs steroid use * CXR showed RLL infiltrate per report. * Flu and rapid strep negative. * Zithromax 500mg IV daily and Rocephin 1g IV daily, started 11/26. * F/U mycoplasma IgG/IgM * Legionaire urine AG negative and and strep pneumo AG negative * Blood culture negative x 24h * PT evaluation Hypokalemia * 11/28: K3.5 -> Kdur 40mg PO Once * Potassium chloride 20 meq PO once * f/u magnesium level * Cont to monitor Hx of HTN * 11/28: Echo performed, follow up official read * Continue home med: * Norvasc 10mg PO daily. * Lopressor 100mg PO q12H. * HCTZ 25mg PO daily. * Losartan 100mg PO daily. * BNP (11/26) - 1140 Hx of taking Coumadin * 11/28: INR 3.7. Coumadin 4mg PO once * Pt unaware of hx of arrhythmia, said it was for "fast heart rate" * Currently rate controlled and sinus @ 62 * Continue Amiodarone 200mg PO daily * EKG (11/26) - normal sinus rhythm, prolonged QT UTI * Urine LE 3+ * Continue Rocephin. * Urine culture negative Prophylactic measure * Coumadin, Pepcid. * Meclizine PRN. Case discussed with attending. All medical management as per Dr. Xu Sousa
[2016-11-28] MEDS: Saccharomyces Boulardi 250 mg Cap PO SCH ×2 (09:39→18:45)
[2016-11-28] MEDS ORDERED: Ipratropium 17 mcg/puff-200 puff/12.5 gm HFA Inh IH SCH (10:00)
[2016-11-28] MEDS ORDERED: Pneumococcal 23-Valent Vaccine IM ONE (10:00)
--- NOTE | 2016-11-28 10:58 | CP.PCM.PN ---
Subjective - Date & Time of Evaluation Date of Evaluation: 11/28/16 Time of Evaluation: 10:20 - Subjective Subjective: patient seen and examined. Lying comfortably in no acute distress Slight cough Afebrile Feel better Objective - Vital Signs/Intake and Output Vital Signs (last 24 hours): Temp Pulse Resp BP Pulse Ox 97.6 F 67 20 129/73 100 11/28/16 08:46 11/28/16 08:46 11/28/16 08:46 11/28/16 08:46 11/28/16 08:46 Intake and Output: 11/28/16 11/28/16 06:59 18:59 Intake Total 240 Balance 240 - Medications Medications: Current Medications Amiodarone HCl (Cordarone) 200 mg PO DAILY [facility] Last Admin: 11/28/16 09:39 Dose: 200 mg Amlodipine Besylate (Norvasc) 10 mg PO 1800 [facility] Last Admin: 11/27/16 18:04 Dose: 10 mg Famotidine (Pepcid) 20 mg PO BID [facility] Last Admin: 11/28/16 09:40 Dose: 20 mg Hydrochlorothiazide (Hydrodiuril) 25 mg PO 0900 [facility] Last Admin: 11/28/16 08:26 Dose: 25 mg Ceftriaxone Sodium 1 gm/ (Sodium Chloride) 100 mls @ 100 mls/hr IVPB DAILY [facility] Last Admin: 11/28/16 09:38 Dose: 100 mls/hr Azithromycin (Zithromax 500mg In Ns Addvantage) 500 mg in 250 mls @ 167 mls/hr IVPB Q24H [facility] Last Admin: 11/27/16 12:45 Dose: 167 mls/hr Losartan Potassium (Cozaar) 100 mg PO 1400 [facility] Last Admin: 11/27/16 15:02 Dose: 100 mg Meclizine HCl (Antivert) 25 mg PO Q6 PRN PRN Reason: Dizziness Methylprednisolone (Solu-Medrol) 40 mg IVP Q8H [facility] Last Admin: 11/28/16 03:32 Dose: 40 mg Metoprolol Tartrate (Lopressor) 100 mg PO Q12H [facility] Last Admin: 11/28/16 08:27 Dose: 100 mg Saccharomyces Boulardii (Florastor) 250 mg PO BID [facility] Last Admin: 11/28/16 09:39 Dose: 250 mg Fluticasone/Salmeterol (Advair Diskus 250/50) 1 puff IH RQ12 [facility] Last Admin: 11/28/16 09:15 Dose: 1 puff - Labs Labs: 11/28/16 06:25 11/28/16 06:25 PT 43.3 SECONDS (9.7-12.2) H* D 11/28/16 06:25 INR 3.7 11/28/16 06:25 APTT 38 SECONDS (21-34) H D 11/27/16 06:45 - Head Exam Head Exam: ATRAUMATIC, NORMOCEPHALIC - Eye Exam Eye Exam: Normal appearance - ENT Exam ENT Exam: Mucous Membranes Moist - Neck Exam Neck Exam: Normal Inspection - Respiratory Exam Respiratory Exam: Rales - Cardiovascular Exam Cardiovascular Exam: REGULAR RHYTHM - GI/Abdominal Exam GI & Abdominal Exam: Soft, Normal Bowel Sounds - Extremities Exam Extremities Exam: Full ROM, Normal Inspection - Neurological Exam Neurological Exam: Alert Assessment and Plan (1) Pneumonia Assessment & Plan: followup chest x-ray Elevated white count secondary to steroids and pneumonia Continue IV antibiotics Taper steroids Status: Acute
[2016-11-28] MEDS: Azithromycin 500mg/250ML NS 500 MG/250 ML BAG IVPB SCH (12:30)
[2016-11-28] MEDS ORDERED: Potassium Chloride 20 mEq ER Tab PO ONE (16:00)
--- NOTE | 2016-11-28 17:47 | CARD ---
APPROVED REPORT EXAM: Two-dimensional and M-mode echocardiogram with Doppler and color Doppler. INDICATION Dyspnea Atrial Fibrillation PNEUMONIA, FEVER RISK FACTORS Hypertension 2D DIMENSIONS IVSd0.8 (0.7-1.1cm)LVDd4.7 (3.9-5.9cm) PWd0.9 (0.7-1.1cm)LVDs3.8 (2.5-4.0cm) FS (%) 20.1 %LVEF (%)41.2 (>50%) M-Mode DIMENSIONS RVDd2.43 (2.1-3.2cm)Left Atrium (MM)3.51 (2.5-4.0cm) IVSd0.83 (0.7-1.1cm)Aortic Root2.60 (2.2-3.7cm) LVDd4.89 (4.0-5.6cm)Aortic Cusp Exc.1.87 (1.5-2.0cm) PWd0.90 (0.7-1.1cm)FS (%) 43 % LVDs2.78 (2.0-3.8cm)LVEF (%)74 (>50%) Mitral Valve MV E [id number]/sMV A Irtoxwqi03.0cm/sE/A ratio2.2 TDI E/Lateral E'0.0E/Medial E'0.0 Tricuspid Valve TR Peak [id number] Peak [id number] LEFT VENTRICLE The left ventricle is normal size. There is normal left ventricular wall thickness. The left ventricular function is normal. The left ventricular ejection fraction is within the normal range. There is normal LV segmental wall motion. Transmitral Doppler flow pattern is abnormal. RIGHT VENTRICLE The right ventricle is normal size. ATRIA The left atrium size is normal. The right atrium size is normal. AORTIC VALVE The aortic valve is normal in structure. MITRAL VALVE Mitral regurgitation is trace to mild. TRICUSPID VALVE There is severe tricuspid regurgitation. <Conclusion> Normal LV systolic function. Trace-mild MR. Severe TR.
--- NOTE | 2016-11-28 19:41 | CARD ---
APPROVED REPORT EKG Measurement Heart [id number] MD [id number] <Conclusion> Normal sinus rhythm Left anterior fascicular block Moderate voltage criteria for LVH, may be normal variant Nonspecific ST abnormality Prolonged QT Abnormal ECG
[2016-11-28 20:21] LABS: INR 3.8
[2016-11-29 00:07] VITALS: O2SAT 95
[2016-11-29] MEDS: MethylPREDNISolone 40 mg Vial IVP SCH (03:42)
[2016-11-29] MEDS: Fluticasone-Salmeterol 250-50mcg Diskus IH SCH (07:45)
[2016-11-29 08:12] LABS: BASO % 0.1 % (0.0-2.0); HEMATOCRIT 33.6 % (34.0-47.0); LYMPH # 0.4 K/uL (1.0-4.3); LYMPH % 2.3 % (20.0-40.0); MEAN CELL VOLUME 83.1 fL (81.0-99.0); MEAN CORPUSCULAR HEMOGLOBIN 27.5 pg (27.0-31.0); MEAN CORPUSCULAR HGB CONC 33.1 g/dL (33.0-37.0); MONO # 0.3 K/uL (0.0-0.8); MONO % 1.7 % (0.0-10.0); PLATELET COUNT 372 K/uL (130-400); RED CELL DISTRIBUTION WIDTH 16.9 % (11.5-14.5); WHITE BLOOD COUNT 18.4 K/uL (4.8-10.8)
[2016-11-29 08:15] VITALS: BP 122/66; PULSE 68; RESP 18; TEMP 97.7
[2016-11-29 08:15] LABS: INR 4.1
[2016-11-29 08:23] LABS: POTASSIUM 4.4 mmol/L (3.6-5.2)
[2016-11-29 08:25] LABS: BILIRUBIN,TOTAL 0.3 mg/dL (0.2-1.3)
[2016-11-29 08:26] LABS: ALB/GLOB RATIO 0.9 (1.0-2.1); CALCIUM 8.5 mg/dl (8.6-10.4); MAGNESIUM 2.1 mg/dL (1.6-2.3); PHOSPHOROUS 2.8 mg/dL (2.5-4.5); TOTAL PROTEIN 6.4 g/dL (6.3-8.3)
[2016-11-29 09:21] LABS: NEUTROPHIL 97 % (50-75); TOTAL CELLS COUNTED 100
[2016-11-29] MEDS: Saccharomyces Boulardi 250 mg Cap PO SCH (09:52)
[2016-11-29] MEDS: Azithromycin 500mg/250ML NS 500 MG/250 ML BAG IVPB SCH (11:15)
--- NOTE | 2016-11-29 13:43 | CP.PCM.PN ---
Subjective - Date & Time of Evaluation Date of Evaluation: 11/29/16 Time of Evaluation: 09:15 - Subjective Subjective: Medicine progress note for Dr Sousa: Patient seen and examined. Patient states she feels better and wants to go home. Patient states her breathing has improved, patient denies fever, chills. Objective - Vital Signs/Intake and Output Vital Signs (last 24 hours): Temp Pulse Resp BP Pulse Ox 97.7 F 68 18 122/66 95 11/29/16 07:15 11/29/16 07:15 11/29/16 07:15 11/29/16 07:15 11/29/16 07:15 Intake and Output: 11/29/16 11/29/16 06:59 18:59 Intake Total 480 Balance 480 - Medications Medications: Current Medications Amiodarone HCl (Cordarone) 200 mg PO DAILY [facility] Last Admin: 11/29/16 09:52 Dose: 200 mg Amlodipine Besylate (Norvasc) 10 mg PO 1800 [facility] Last Admin: 11/28/16 18:45 Dose: Not Given Famotidine (Pepcid) 20 mg PO BID [facility] Last Admin: 11/29/16 09:51 Dose: 20 mg Hydrochlorothiazide (Hydrodiuril) 25 mg PO 0900 [facility] Last Admin: 11/29/16 09:52 Dose: 25 mg Ceftriaxone Sodium 1 gm/ (Sodium Chloride) 100 mls @ 100 mls/hr IVPB DAILY [facility] Last Admin: 11/29/16 09:52 Dose: 100 mls/hr Azithromycin (Zithromax 500mg In Ns Addvantage) 500 mg in 250 mls @ 167 mls/hr IVPB Q24H [facility] Last Admin: 11/29/16 11:15 Dose: 167 mls/hr Losartan Potassium (Cozaar) 100 mg PO 1400 [facility] Last Admin: 11/28/16 14:26 Dose: 100 mg Meclizine HCl (Antivert) 25 mg PO Q6 PRN PRN Reason: Dizziness Metoprolol Tartrate (Lopressor) 100 mg PO Q12H [facility] Last Admin: 11/29/16 09:52 Dose: 100 mg Saccharomyces Boulardii (Florastor) 250 mg PO BID [facility] Last Admin: 11/29/16 09:52 Dose: 250 mg Fluticasone/Salmeterol (Advair Diskus 250/50) 1 puff IH RQ12 BIBI Last Admin: 11/29/16 07:45 Dose: 1 puff - Labs Labs: 11/29/16 07:52 11/29/16 07:52 PT 48.4 SECONDS (9.7-12.2) H* 11/29/16 07:52 INR 4.1 11/29/16 07:52 APTT 36 SECONDS (21-34) H 11/29/16 07:52 - Constitutional Appears: Non-toxic, No Acute Distress - Head Exam Head Exam: ATRAUMATIC, NORMOCEPHALIC - Eye Exam Eye Exam: EOMI - ENT Exam ENT Exam: Mucous Membranes Moist - Respiratory Exam Respiratory Exam: Wheezes (right side) - Cardiovascular Exam Cardiovascular Exam: +S1, +S2 - GI/Abdominal Exam GI & Abdominal Exam: Soft, Normal Bowel Sounds. absent: Tenderness - Extremities Exam Extremities Exam: absent: Pedal Edema - Neurological Exam Neurological Exam: Alert, Awake - Psychiatric Exam Psychiatric exam: Normal Affect - Skin Skin Exam: Warm Assessment and Plan - Assessment and Plan (Free Text) Assessment: RLL pneumonia * 11/29: WBC 18.4, elevated likely due to steroid use. Continue current management * CXR showed RLL infiltrate per report. * Flu and rapid strep negative. * Zithromax 500mg IV daily and Rocephin 1g IV daily, started 11/26- will discharge patient on doxycycline * F/U mycoplasma IgG/IgM * Legionaire urine AG negative and and strep pneumo AG negative * Blood culture negative x 24h Asthma exacerbation * 11/29: Continue telemetry, no adverse cardiac events. * Solumedrol discontinued. patient to be discharged on prednisone taper. * Advair q12H. * Spiriva inhaler given x 1 on 11/27 * Albuterol q6 prn SOB - discontinued due to possible adverse effect on afib * Peak flow pre and post tx * Pulmonary consult (Dr. Bose) Hypokalemia * 11/29: K4.4 * Potassium chloride 20 meq PO once * f/u magnesium level * Cont to monitor Hx of HTN * 11/29: Echo: severe tricuspid regurgitation, trace to mild mitral valve regurgitation, normal LV systolic function * Continue home med: * Norvasc 10mg PO daily. * Lopressor 100mg PO q12H. * HCTZ 25mg PO daily. * Losartan 100mg PO daily. * BNP (11/26) - 1140 Hx of taking Coumadin * 11/29: INR 4.1. Patient to hold dose of coumadin tonight, follow up with Dr. Sousa tomorrow * pt was taking 1/2 tablet of 5mg coumadin at home * Pt unaware of hx of arrhythmia, said it was for "fast heart rate" * Currently rate controlled and sinus @ 62 * Continue Amiodarone 200mg PO daily * EKG (11/26) - normal sinus rhythm, prolonged QT UTI * Urine LE 3+ * Continue Rocephin. * Urine culture negative Prophylactic measure * Coumadin, Pepcid. * Meclizine PRN. All medical management as per Dr. Xu Sousa Patient is stable for discharge home per Dr. Sousa. Patient is to NOT take coumadin tonight and is to follow up with Dr. Sousa tomorrow morning in his office for INR check. Patient is being given new prescriptions for doxycycline 100mg q12h for 5 days. She is also being given new prescription for prednisone taper as follows: take 40mg daily for 3 days, 30mg daily for 3 days, 20mg daily for 3 days, 10mg daily for 3 days and then the taper is completed. Patient is to return to ER if symptoms reoccur or worsen. This was explained to the patient who understands and agrees.
--- NOTE | 2016-12-07 08:32 | DS ---
The patient presented to the hospital complaining of shortness of breath, weakness and fatigue. Patient has severe asthma, status post pneumonia on the x-rays. The patient denies antibiotics but put on steroids; patient showed further improvement. Discharge and follow-up as outpatient. Pneumonia, bronchial asthma. Romulo Sousa MD
== END 2016-11-29 14:15 | disposition home or self-care (01) | DRG 194 ==
LOC: C.ER 12:12 → C.9E 13:36 → C.6T 20:12
PROVIDERS: ADMIT Internal Medicine Pulmonary Disease; ATTEND Internal Medicine Pulmonary Disease
DX: J18.9 Pneumonia, unspecified organism (principal); J45.901 Unspecified asthma with (acute) exacerbation; I11.0 Hypertensive heart disease with heart failure; I50.9 Heart failure, unspecified; N39.0 Urinary tract infection, site not specified; I08.3 Combined rheumatic disorders of mitral, aortic and tricuspid valves; I48.91 Unspecified atrial fibrillation; E87.6 Hypokalemia; T38.0X5A Adverse effect of glucocorticoids and synthetic analogues, initial encounter; Z79.01 Long term (current) use of anticoagulants